=== PATIENT | female | born 1975 | race Caucasian/White ===

== ENCOUNTER 2016-07-31 05:40 | Emergency (ER) | payer BC ==
--- NOTE | 2016-08-04 15:08 | ER ---
ADMIT: 07/31/2016 RM/LOC: ER [facility] MR#: [id number] [facility] [address] [place], [place] [id number] ERNIE BEDOYA [address] [address] Emergency Room Report SEX: F AGE: 40 : 1975 DATE: 07/31/2016 TIME: 0540 Please refer to my T-sheet for complete H and P. HISTORY OF PRESENT ILLNESS: Briefly, the patient is a 40-year-old, who comes in with some back pain, abdominal pain, vomiting and diarrhea. It has been going on 24 hours. She has had no surgeries on her abdomen. She has not traveled, has not been on any antibiotics. PHYSICAL EXAMINATION: VITAL SIGNS: Blood pressure 100/51, pulse 62, respirations 18, temp 97.8, saturating 100%. GENERAL: No acute distress. HEENT: Grossly normal. LUNGS: Clear. HEART: Regular. ABDOMEN: Diffusely tender. No rebound. No guarding, nonrigid. Does not localize. BACK: She has diffuse tenderness, almost seems musculoskeletal in the low- back. EMERGENCY DEPARTMENT COURSE: CBC and chemistries including liver functions all normal. Urine negative. UA normal except 3 red cells. She gave a clean catch. She was on her period. I gave her Zofran, Toradol 60 IM and 2 [place], her pain was much improved. I had a discussion, she is ready for discharge. ASSESSMENT: 1. Generalized abdominal pain. 2. Nausea, vomiting, and diarrhea. 3. Back pain. PLAN: [place] 5, I gave her script for 15. Phenergan 25, 15 of those. Rest, return if worse, fluids. Follow up with [facility] this week. Chris Bean MD/ prashanth JOB #: [id number] CC: Chris Bean MD, Attending Physician Carmen Causey, Family Physician
== END 2016-07-31 07:06 | disposition home or self-care (01) ==
LOC: ER 05:40
DX: R10.84 Generalized abdominal pain (principal); R11.2 Nausea with vomiting, unspecified; R19.7 Diarrhea, unspecified; M54.6 Pain in thoracic spine

== ENCOUNTER 2016-10-09 06:17 | Emergency (ER) | payer BC ==
--- NOTE | 2016-10-09 19:52 | ER ---
ADMIT: 10/09/2016 RM/LOC: ER [facility] MR#: [id number] [facility] [address] [place], [place] [id number] ERNIE BEDOYA [address] [address] Emergency Room Report SEX: F AGE: 40 : 1975 DATE: 10/09/2016 HISTORY OF PRESENT ILLNESS: The patient is a 40-year-old female, with no significant past medical history, came to the ER with chief complaint of anterior chest discomfort more like pressure, it started last night with anxiety. The patient states recently she has more stressors in life and she was very anxious recently. The patient states today, this morning after waking up, the pain increased which is more pressure and also she became suddenly short of breath which was resolved. The patient also states for some transit time, she felt some numbness in the arm which is also resolved. The patient denies any similar symptoms in the past. The patient states she had previously suffered from some heartburn. MEDICATIONS: The patient is not taking any oral or hormonal contraceptives. SOCIAL HISTORY: The patient is not a smoker and does not use any drugs. FAMILY HISTORY: The patient has no family history of early heart problems. PHYSICAL EXAMINATION: GENERAL: The patient is in mild distress, anxious. VITAL SIGNS: Normal. The patient is afebrile, respiratory rate is 18, O2 saturation on room air is 100%, heart rate is 74, and blood pressure is 132/77. HEAD and NECK: Normal. LUNGS: Clear bilaterally. HEART: Normal S1, S2, without any murmurs or gallops. Normal peripheral pulses. ABDOMEN: Soft. EXTREMITIES: There is no swelling or tenderness in extremities. EMERGENCY ROOM COURSE: EKG was normal sinus rhythm with a rate of 74. Chest x-ray was negative for any acute changes or abnormalities. The patient already received GI cocktail and aspirin. The patient was signed out to the next shift to follow up on the troponin level and dispo the patient accordingly. Tarun Fine MD/ prashanth JOB #: [id number] CC: Tarun Fine MD, Attending Physician Carmen Causey, Family Physician
== END 2016-10-09 08:05 | disposition home or self-care (01) ==
LOC: ER 06:17
DX: R07.9 Chest pain, unspecified (principal); R42 Dizziness and giddiness